=== PATIENT | male | born 1980 | race Two or more races ===

== ENCOUNTER 2021-06-17 10:49 | Emergency (ER) | payer MEDICAID ==
[~2021-06-17] VITALS: Ht 167.6 cm; Wt 77.3 kg
[2021-06-17 11:02] VITALS: BP 134/90
[2021-06-17] MEDS ORDERED: ALBU6.7H9 INH (11:11)
== END 2021-06-17 11:44 | disposition home or self-care (01) ==
LOC: ER 10:49
DX: J06.9 Acute upper respiratory infection, unspecified (principal); Z20.822 Contact with and (suspected) exposure to COVID-19; Z79.899 Other long term (current) drug therapy
CPT/HCPCS: 36415; 99283; U0003